=== PATIENT | male | born 1955 | race American Indian/Alaskan Native ===

== ENCOUNTER → 2020-08-08 | Emergency (ER) | payer MEDICAID ==
[~2020-08-08] MED LIST: EPINEPHrine/PF 1 MG/1 ML INJ ONE; FAMOTIDINE 20 MG/2 ML INJ IV ONE; LORazepam 1 MG TAB PO ONE; LORazepam 2 MG TAB ONE; LORazepam 2 MG/ML VIAL IM ONE; LORazepam 2 MG/ML VIAL ONE; NALOXONE 0.4 MG/1 ML INJ ONE; NALOXONE 2 MG/2 ML INJ ONE; WATER FOR INJ Sterile (PF) 10 ML ONE; ZIPRASIDONE MESYLATE 20 MG VIAL IM ONE; amLODIPine 5 MG TAB ONE; diphenhydrAMINE 50 MG/ML VIAL ONE; methylPREDNISolone Sod Succinate 125 MG/2 ML INJ ONE
[2020-08-09 00:07] LABS: Basophils # (Auto) 0.1 K/mm3 (0.0-0.1); Basophils % (Auto) 1.2 % (0.0-1.8); Eosinophils # (Auto) 0.2 K/mm3 (0.0-0.4); Eosinophils % (Auto) 1.9 % (0.0-4.3); Hematocrit 43.8 % (35.5-45.6); Hemoglobin 14.5 gm/dl (11.8-15.2); Lymphocytes # (Auto) 2.3 K/mm3 (1.2-5.4); Lymphocytes % (Auto) 25.1 % (13.4-35.0); Mean Corpuscular HGB Conc 33 % (32-34); Mean Corpuscular Volume 87 fl (84-94); Monocytes % (Auto) 10.3 % (0.0-7.3); Platelet Count 274 K/mm3 (140-440); Red Blood Count 5.03 M/mm3 (3.65-5.03); Red Cell Distribution Width 15.9 % (13.2-15.2)
--- NOTE | 2020-08-09 00:19 | Emergency Department Report ---
<NEAL LI - Last Filed: 08/10/20 11:30> ED Psych HPI - General Chief Complaint: Medical Clearance Stated Complaint: MH EVAL Time Seen by Provider: 08/09/20 00:15 - Related Data Previous Rx's Medication Instructions Recorded Last Taken Type risperiDONE [RisperDAL] 0.25 mg PO BID #60 tab 08/10/20 Unknown Rx traZODone [Desyrel] 50 mg PO QHS #30 tab 08/10/20 Unknown Rx Allergies Allergy/AdvReac Type Severity Reaction Status Date / Time No Known Allergies Allergy Unverified 08/08/20 23:23 ED Past Medical Hx - Medications Home Medications: Home Medications Medication Instructions Recorded Confirmed Last Taken Type risperiDONE [RisperDAL] 0.25 mg PO BID #60 tab 08/10/20 Unknown Rx traZODone [Desyrel] 50 mg PO QHS #30 tab 08/10/20 Unknown Rx ED Medical Decision Making - Lab Data Result diagrams: 08/08/20 23:44 08/08/20 23:44 - Medical Decision Making I briefly assessed Mr. Brennan. I reviewed recommendations by our psychiatric team. Patient is currently resting comfortably after receiving sedative. He airway is intact. He has purposeful movement sitting upright in chair. I have asked charge nurse to contact case management for placement. Psychiatric team diagnosed patient with progressive dementia. ED Disposition Clinical Impression: Brain aneurysm, Acute psychosis, Agitation, Dementia Altered mental status Qualifiers: Altered mental status type: unspecified Qualified Code(s): R41.82 - Altered mental status, unspecified Disposition: DC/TX-65 PSY HOSP/PSY UNIT Condition: Stable Additional Instructions: After discharge, the patient will need to see a neurosurgeon for management of his 7 mm aneurysm. Professional and Agency Contacts To help [facility] (08/12) [place] Crisis Line: Suicide Prevention Line: Crisis Text Line: Text START to [phone] Emergency: 911 Outpatient COMM[facility] Behavioral Health Resources: [facility]: [facility] [address], [place] [address] [facility] [address] [place] [address] Thursday thru Thursday - 8am - 5pm Call to schedule an assessment for mental health and substance abuse programs [facility] Address: [address], [place], [place] Thursday thru Thursday- 7am-2pm [facility] Address: [address] [place], [place] [address] Thursday thrthursday: 8:30AM-5PM Prescriptions: traZODone [Desyrel] 50 mg PO QHS #30 tab risperiDONE [RisperDAL] 0.25 mg PO BID #60 tab Referrals: PRIMARY CARE, [Primary Care Provider] - 2-3 Days <HOLGER MATT - Last Filed: 08/16/20 00:54> ED Course - Reevaluation(s) Reevaluation #4: 08/14/20 11:04 I have reviewed the patient's chart, history, laboratory studies, and prior medical documentation. It appears that he was initially medically cleared during his initial ER evaluation, was cleared from a psychiatric perspective is not requiring 1013 or involuntary hold, and is now awaiting case management intervention to arrange appropriate safe outpatient social disposition. Nursing team has requested as needed medications for agitation, and anxiety. As needed Ativan is ordered by myself. Patient currently presents as awake, moving 4 extremities, protecting his airway, and does not appear to be in any acute distress. Final disposition as per case management. ED Medical Decision Making - Lab Data Result diagrams: 08/08/20 23:44 08/08/20 23:44 ED Disposition Is pt being admited?: No Does the pt Need Aspirin: No <KANDI WASHINGTON III - Last Filed: 08/16/20 21:29> ED Psych HPI - General Source: patient, family Mode of arrival: Ambulatory Limitations: Altered Mental Status - History of Present Illness Initial Comments: Patient is a 64-year-old male that presents emergency room for a psych evaluation and mental health clearance. Patient was brought in by his sister. I discussed the case with the sister. Sister states the patient has been violent and belligerent lately. Patient states has been going on for about 3 days. Patient sister states that he has been wandering and aggressive. Patient's sister had to call the police and they told her to bring him to the hospital. Patient is alert and oriented x1. Patient does not answer any questions. Patie nt is oriented to self only. MD Complaint: altered mental status -: Sudden History of same: No Quality: constant Improves With: none Worsens With: none Associated Symptoms: denies: confusion, headache, shortness of breath, nausea, vomiting, syncope, insomnia ED Review of Systems ROS: Stated complaint: MH EVAL Other details as noted in HPI Comment: Unobtainable due to pts medical conditions ED Past Medical Hx - Past Medical History Previous Medical History?: Yes Hx Hypertension: Yes Hx Dementia: Yes - Surgical History Past Surgical History?: Yes Additional Surgical History: stent x1 - Family History Family history: no significant - Social History Smoking Status: Current Some Day Smoker Substance Use Type: None ED Physical Exam - General Limitations: Altered Mental Status General appearance: alert, in no apparent distress - Head Head exam: Present: atraumatic, normocephalic - Eye Eye exam: Present: normal appearance - ENT ENT exam: Present: mucous membranes moist - Neck Neck exam: Present: normal inspection - Respiratory Respiratory exam: Present: normal lung sounds bilaterally. Absent: respiratory distress, wheezes, rales - Cardiovascular Cardiovascular Exam: Present: regular rate, normal rhythm. Absent: systolic murmur, diastolic murmur, rubs, gallop - GI/Abdominal GI/Abdominal exam: Present: soft, normal bowel sounds. Absent: distended, tenderness, guarding - Rectal Rectal exam: Present: deferred - Extremities Exam Extremities exam: Present: normal inspection - Back Exam Back exam: Present: normal inspection - Neurological Exam Neurological exam: Present: alert, altered - Psychiatric Psychiatric exam: Present: agitated - Expanded Psychiatric Exam Expanded Focused psych exam: Present: pressured speech, psychomotor agitation, restlessness, flight of ideas - Skin Skin exam: Present: warm, dry, intact, normal color. Absent: rash ED Course Vital Signs 08/08/20 08/09/20 08/09/20 23:23 09:16 09:18 Temperature 98.2 F 97.9 F Pulse Rate 94 H 100 H Respiratory 18 18 16 Rate Blood Pressure 155/102 Blood Pressure 153/97 [Left] O2 Sat by Pulse 100 97 Oximetry 08/09/20 08/09/20 08/10/20 20:10 21:46 02:20 Temperature 98.7 F 98.7 F 97.9 F Pulse Rate 93 H 93 H 68 Respiratory 18 18 16 Rate Blood Pressure Blood Pressure 144/98 144/98 157/103 [Left] O2 Sat by Pulse 97 97 96 Oximetry 08/10/20 08/10/20 08/11/20 07:46 19:20 08:08 Temperature 98.6 F 98 F 98.3 F Pulse Rate 68 84 95 H Respiratory 20 18 18 Rate Blood Pressure Blood Pressure 167/103 142/86 100/72 [Left] O2 Sat by Pulse 98 100 95 Oximetry 08/11/20 08/11/20 08/11/20 10:37 19:30 23:30 Temperature 98.2 F Pulse Rate 82 83 79 Respiratory 18 16 Rate Blood Pressure 141/96 Blood Pressure 142/86 139/79 [Left] O2 Sat by Pulse 98 98 Oximetry 08/12/20 08/12/20 08/12/20 02:17 10:31 10:45 Temperature 98.3 F 98.0 F Pulse Rate 69 105 H 89 Respiratory 16 16 20 Rate Blood Pressure 143/104 Blood Pressure 130/97 142/96 [Left] O2 Sat by Pulse 95 93 96 Oximetry 08/13/20 08/13/20 08/13/20 06:30 10:05 20:01 Temperature 98.0 F 98.5 F Pulse Rate 88 76 87 Respiratory 14 20 16 Rate Blood Pressure Blood Pressure 141/88 163/115 123/89 [Left] O2 Sat by Pulse 98 96 97 Oximetry 08/14/20 08/14/20 08/15/20 07:55 22:00 00:00 Temperature 97.8 F 97.8 F Pulse Rate 64 98 H Respiratory 20 18 18 Rate Blood Pressure Blood Pressure 139/106 171/100 [Left] O2 Sat by Pulse 96 100 Oximetry 08/15/20 08/15/20 08/16/20 10:46 20:00 08:30 Temperature 97.9 F 97.2 F L Pulse Rate 78 73 77 Respiratory 18 18 20 Rate Blood Pressure Blood Pressure 142/88 149/89 148/105 [Left] O2 Sat by Pulse 100 100 Oximetry - Reevaluation(s) Reevaluation #1: Patient placed on 1013 after initial evaluation. Patient will be given Geodon and Ativan since the patient is agitated. 08/09/20 00:22 Reevaluation #2: Shortly after initial evaluation, the patient became calm and did not require the Ativan or Geodon. The Ativan and Geodon were canceled. 08/09/20 01:21 Reevaluation #3: Patient is medically clear. Patient will remain in the ER as an ER hold patient accepted to appropriate psychiatric facility or the patient's final disposition comes from our psychiatric team. 08/09/20 03:20 - Consultations Consultation #1: I discussed CT findings with neurosurgery. Dr. Mallory recommends a CTA to be done as an outpatient. 08/09/20 02:03 ED Medical Decision Making - Lab Data Result diagrams: 08/08/20 23:44 08/08/20 23:44 - Radiology Data Radiology results: report reviewed CT HEAD WITHOUT CONTRAST INDICATION / CLINICAL INFORMATION: Medical Clearance Psych. Altered Mental Status. TECHNIQUE: All CT scans at this location are performed using CT dose reduction for ALARA by means of automated exposure control. COMPARISON: None available. FINDINGS: HEMORRHAGE: None. EXTRA-AXIAL SPACES: Normal in size and morphology for the patient's age. VENTRICULAR SYSTEM: Normal in size and morphology for the patient's age. CEREBRAL PARENCHYMA: Age-indeterminate lacunar infarcts right caudate nucleus image 13. No acute territorial infarct. MIDLINE SHIFT OR HERNIATION: None. CEREBELLUM / BRAINSTEM: No significant abnormality. ORBITS: Normal as visualized. SOFT TISSUES of HEAD: No significant abnormality. CALVARIUM: No significant abnormality. PARANASAL SINUSES / MASTOID AIR CELLS: Normal as visualized. ADDITIONAL FINDINGS: 7 mm right anterior cerebral artery aneurysm series 2 image 9 IMPRESSION: 1. 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 Recommend head CTA for further evaluation 2. 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 Patient found to be agitated and not cooperative. After initial evaluation, the patient was placed on 1013. Patient appears to be acute psychosis. Patient had labs done which were essentially unremarkable. Due to the patient's altered mental status, the patient had a head CT and the CT was negative for acute findings but showed a 7 mm aneurysm. I discussed the case with our neurosurgeon and neurosurgery recommends to have a CTA as an outpatient not in the ER. Patient is stable and medically clear. Patient is final disposition will come from mental health and psychiatry team. - Differential Diagnosis Acute psychosis, UTI, electrolyte imbalance, dehydration Critical care attestation.: If time is entered above; I have spent that time in minutes in the direct care of this critically ill patient, excluding procedure time. ED Disposition Is pt being admited?: No Does the pt Need Aspirin: No Time of Disposition: 03:23
[2020-08-09 00:27] LABS: BUN/Creatinine Ratio 17; Blood Urea Nitrogen 17 mg/dL (9-20); Calcium 9.8 mg/dL (8.4-10.2); Hemolysis Index 12
--- NOTE | 2020-08-09 01:16 | Cat Scan Report ---
CT HEAD WITHOUT CONTRAST INDICATION / CLINICAL INFORMATION: Medical Clearance Psych. Altered Mental Status. TECHNIQUE: All CT scans at this location are performed using CT dose reduction for ALARA by means of automated e xposure control. COMPARISON: None available. FINDINGS: HEMORRHAGE: None. EXTRA-AXIAL SPACES: Normal in size and morphology for the patient's age. VENTRICULAR SYSTEM: Normal in size and morphology for the patient's age. CEREBRAL PARENCHYMA: Age-indeterminate lacunar infarcts right caudate nucleus image 13. No acute terr itorial infarct. MIDLINE SHIFT OR HERNIATION: None. CEREBELLUM / BRAINSTEM: No significant abnormality. ORBITS: Normal as visualized. SOFT TISSUES of HEAD: No significant abnormality. CALVARIUM: No significant abnormality. PARANASAL SINUSES / MASTOID AIR CELLS: Normal as visualized. ADDITIONAL FINDINGS: 7 mm right anterior cerebral artery aneurysm series 2 image 9 IMPRESSION: 1. 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 Recommend he ad CTA for further evaluation 2. 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
[2020-08-09 02:35] LABS: Bilirubin,Urine NEG (Negative); Blood,Urine NEG (Negative); Color,Urine Yellow (Yellow); Mucus,Urine 2+ /HPF; Protein,Urine <15 mg/dL mg/dL (Negative)
[2020-08-09 02:40] LABS: Amphetamine Screen,Urine PRESUMPTIVE NEGATIVE; Benzodiazepines Screen,Urine PRESUMPTIVE NEGATIVE; Cannabinoid Screen,Urine PRESUMPTIVE NEGATIVE; Cocaine Screen,Urine PRESUMPTIVE NEGATIVE; Methadone Screen,Urine PRESUMPTIVE NEGATIVE; Opiate Screen,Urine PRESUMPTIVE NEGATIVE
--- NOTE | 2020-08-09 08:39 | Consultation ---
History of Present Illness - Reason for Consult Consult date: 08/09/20 Reason for consult: agitation - History of Present Psychiatric Illness Per ED Note: Patient is a 64-year-old male that presents emergency room for a psych evaluation and mental health clearance. Patient was brought in by his sister. I discussed the case with the sister. Sister states the patient has been violent and belligerent lately. Patient states has been going on for about 3 days. Patient sister states that he has been wandering and aggressive. Patient's sister had to call the police and they told her to bring him to the hospital. The patient was seen today, he is confused. He is unable to get any information from him. He is irritable. He says "awww damn" when asking him questions. He is difficult to redirect and attempting to get out of bed several times. The nurse at bedside states the patient's daughter states he was wandering in traffic, confused and agitated. PAST PSYCHIATRIC HISTORY: Unable to assess PAST MEDICAL HISTORY: n/a Family Psychiatric History: None reported or documented SOCIAL HISTORY Unable to assess REVIEW OF SYSTEMS ROS cannot be reliably obtained from the patient due to is confusion MENTAL STATUS EXAMINATION Unable to assess Assessment and Plan (1) Dementia w/Behavioral Disturbance Current Visit: Yes Status: Acute Treatment Plan Risperidone 0.25mg po BID Trazodone 50mg po qhs Geodon 10mg IM q4h prn agitation Case Management consulted for placement The patient's condition is likely due to progressive dementia. Will treat the patient to see if his agitation will improve. The patient is more than likely a candidate for SNF placement. Disposition: Recommend acute psychiatric inpatient placement Will follow. Thank you for this consult. Case staffed with Dr. Dinero. Medications and Allergies Allergies Allergy/AdvReac Type Severity Reaction Status Date / Time No Known Allergies Allergy Unverified 08/08/20 23:23 Active Meds: Active Medications Amlodipine Besylate (Amlodipine 5 Mg Tab) 5 mg PO QDAY NARGIS Mental Status Exam - Vital signs Last Vital Signs Temp 98.2 F 08/08/20 23:23 Pulse 94 H 08/08/20 23:23 Resp 18 08/08/20 23:23 BP 155/102 08/08/20 23:23 Pulse Ox 100 08/08/20 23:23 Results Result Diagrams: 08/08/20 23:44 08/08/20 23:44 Abnormal lab results 08/08/20 08/08/20 08/08/20 Range/Units 23:44 23:44 23:44 RDW 15.9 H (13.2-15.2) % Sac % (Auto) 10.3 H (0.0-7.3) % Sac # (Auto) 1.0 H (0.0-0.8) K/mm3 Glucose 121 H (75-100) mg/dL Salicylates < 0.3 L (2.8-20.0) mg/dL Acetaminophen (10.0-30.0) ug/mL 08/08/20 Range/Units 23:44 RDW (13.2-15.2) % Sac % (Auto) (0.0-7.3) % Sac # (Auto) (0.0-0.8) K/mm3 Glucose (75-100) mg/dL Salicylates (2.8-20.0) mg/dL Acetaminophen 5.0 L (10.0-30.0) ug/mL All other labs normal.
[2020-08-09] MEDS: amLODIPine 5 MG TAB PO SCH ×2 (09:48→10:08)
[2020-08-09] MEDS: risperiDONE 0.25 MG TAB PO SCH ×2 (09:49→21:59)
[2020-08-09] MEDS: ZIPRASIDONE MESYLATE 20 MG VIAL IM PRN ×2 (10:00→19:33)
[2020-08-09] MEDS: traZODone 50 MG TAB PO SCH (21:58)
[2020-08-10] MEDS: traZODone 50 MG TAB PO SCH ×2 (03:35→22:00)
[2020-08-10] MEDS: risperiDONE 0.25 MG TAB PO SCH ×3 (03:36→22:00)
--- NOTE | 2020-08-10 10:25 | Progress Note ---
Subjective - Reason for Consult Consult date: 08/10/20 Reason for consult: confusion - Chief Complaint Chief complaint: Per Nurse Note: Verbally redirect patient to remain in room. The patient was interview today, he is much more calm and cooperative today. He is confused. The patient says he's "doing alright" when asked. He says he "slept okay." The patient denies SI/HI. He also denies hallucinations. REVIEW OF SYSTEMS ROS cannot be reliably obtained from the patient due to is confusion MENTAL STATUS EXAMINATION Unable to assess Assessment and Plan (1) Dementia w/Behavioral Disturbance Current Visit: Yes Status: Acute Treatment Plan Risperidone 0.25mg po BID Trazodone 50mg po qhs Case Management consulted for placement Disposition: Do not recommend acute psychiatric inpatient placement. The patient's condition is likely due to progressive dementia. Recommend case management for SNF placement. Will sign off. Thank you for this consult. Case staffed with Dr. Dinero. Mental Status Exam - Vital signs Last Vital Signs Temp 98.6 F 08/10/20 07:46 Pulse 68 08/10/20 07:46 Resp 20 08/10/20 07:46 BP 167/103 08/10/20 07:46 Pulse Ox 98 08/10/20 07:46
[2020-08-10] MEDS: ZIPRASIDONE MESYLATE 20 MG VIAL IM PRN (10:56)
[2020-08-10] MEDS: amLODIPine 5 MG TAB PO SCH (11:02)
[2020-08-11] MEDS: ZIPRASIDONE MESYLATE 20 MG VIAL IM PRN
[2020-08-11] MEDS: risperiDONE 0.25 MG TAB PO SCH ×2 (10:37→23:30)
[2020-08-11] MEDS: amLODIPine 5 MG TAB PO SCH (10:37)
[2020-08-11] MEDS: traZODone 50 MG TAB PO SCH (23:30)
[2020-08-12] MEDS: risperiDONE 0.25 MG TAB PO SCH ×2 (11:26→22:11)
[2020-08-12] MEDS: amLODIPine 5 MG TAB PO SCH (11:27)
[2020-08-12] MEDS: traZODone 50 MG TAB PO SCH (22:11)
[2020-08-13] MEDS: risperiDONE 0.25 MG TAB PO SCH ×2 (10:19→22:25)
[2020-08-13] MEDS: amLODIPine 5 MG TAB PO SCH (10:19)
[2020-08-13] MEDS: traZODone 50 MG TAB PO SCH (22:24)
[2020-08-14] MEDS: amLODIPine 5 MG TAB PO SCH (13:09)
[2020-08-14] MEDS: risperiDONE 0.25 MG TAB PO SCH ×2 (13:09→23:54)
[2020-08-14] MEDS: LORazepam 2 MG/ML VIAL IM PRN (19:50)
[2020-08-14] MEDS: traZODone 50 MG TAB PO SCH (23:54)
[2020-08-15] MEDS: amLODIPine 5 MG TAB PO SCH (10:46)
[2020-08-15] MEDS: risperiDONE 0.25 MG TAB PO SCH ×2 (10:46→21:56)
[2020-08-15] MEDS: LORazepam 2 MG/ML VIAL IM PRN (10:46)
[2020-08-15] MEDS: traZODone 50 MG TAB PO SCH (21:56)
[2020-08-16] MEDS: LORazepam 2 MG/ML VIAL IM PRN ×2 (08:34→17:25)
[2020-08-16] MEDS: amLODIPine 5 MG TAB PO SCH (10:05)
[2020-08-16] MEDS: risperiDONE 0.25 MG TAB PO SCH (10:05)
[2020-08-17] MEDS: risperiDONE 0.25 MG TAB PO SCH ×3 (00:23→23:00)
[2020-08-17] MEDS: traZODone 50 MG TAB PO SCH ×2 (00:23→23:00)
[2020-08-17] MEDS: amLODIPine 5 MG TAB PO SCH (13:46)
[2020-08-18] MEDS: amLODIPine 5 MG TAB PO SCH (17:19)
[2020-08-18] MEDS: LORazepam 2 MG/ML VIAL IM PRN (17:19)
[2020-08-18] MEDS: risperiDONE 0.25 MG TAB PO SCH ×2 (17:19→22:06)
[2020-08-18] MEDS: traZODone 50 MG TAB PO SCH (22:06)
[2020-08-19] MEDS: LORazepam 2 MG/ML VIAL IM PRN (06:03)
[2020-08-19] MEDS: amLODIPine 5 MG TAB PO SCH (13:00)
[2020-08-19] MEDS: risperiDONE 0.25 MG TAB PO SCH (13:00)
[2020-08-20] MEDS: traZODone 50 MG TAB PO SCH ×2 (02:57→22:22)
[2020-08-20] MEDS: risperiDONE 0.25 MG TAB PO SCH ×3 (02:57→22:22)
[2020-08-20] MEDS: LORazepam 2 MG/ML VIAL IM PRN (04:20)
[2020-08-20] MEDS: amLODIPine 5 MG TAB PO SCH (12:22)
[2020-08-21] MEDS: amLODIPine 5 MG TAB PO SCH (10:02)
[2020-08-21] MEDS: risperiDONE 0.25 MG TAB PO SCH ×2 (10:02→23:43)
[2020-08-21] MEDS: LORazepam 2 MG/ML VIAL IM PRN (10:45)
[2020-08-21] MEDS: traZODone 50 MG TAB PO SCH (23:43)
[2020-08-22 10:11] VITALS: BP 141/102
[2020-08-22] MEDS: risperiDONE 0.25 MG TAB PO SCH (10:11)
[2020-08-22] MEDS: amLODIPine 5 MG TAB PO SCH (10:11)
[2020-08-23] MEDS: traZODone 50 MG TAB PO SCH ×2 (00:07→22:01)
[2020-08-23] MEDS: risperiDONE 0.25 MG TAB PO SCH ×3 (00:07→22:01)
[2020-08-23] MEDS: LORazepam 2 MG/ML VIAL IM PRN (00:34)
[2020-08-23] MEDS: amLODIPine 5 MG TAB PO SCH (11:29)
[2020-08-24] MEDS: risperiDONE 0.25 MG TAB PO SCH ×2 (12:06→22:01)
[2020-08-24] MEDS: amLODIPine 5 MG TAB PO SCH (12:06)
[2020-08-24] MEDS: traZODone 50 MG TAB PO SCH (22:01)
== END ==
LOC: EEVIPCON 23:13 → ED 23:13
DX: F03.90 Unspecified dementia, unspecified severity, without behavioral disturbance, psychotic disturbance, mood disturbance, and anxiety (principal); R41.82 Altered mental status, unspecified; I67.1 Cerebral aneurysm, nonruptured; F23 Brief psychotic disorder; R45.1 Restlessness and agitation; F17.200 Nicotine dependence, unspecified, uncomplicated; I10 Essential (primary) hypertension; Z98.890 Other specified postprocedural states; Z79.899 Other long term (current) drug therapy
CPT/HCPCS: 36415; 70450; 80048; 80307; 80320; 81001; 85025; 96372; G0480; J0171; J1200; J2060; J2310; J2930; J3486; U0003